=== PATIENT | male | born 1990 | race Caucasian/White ===

== ENCOUNTER 2018-05-22 13:29 | Emergency (ER) | payer OTHER ==
[2018-05-22 13:36] VITALS: BP 143/70
--- NOTE | 2018-05-22 16:14 | ED Physician Documentation ---
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 fluid in the eye irrigated feels fine now no contacts his command wanted him checked by medical so to the ER brought safety data sheets Review of Systems Eyes: denies: Irritation PD PAST MEDICAL HISTORY - Past Medical History Past Medical History: No - Past Surgical History Past Surgical History: Yes - Present Medications Home Medications: Ambulatory Orders Medication Instructions Recorded Confirmed No Known Home Medications [No 05/22/18 05/22/18 Known Home Medications] - Allergies Allergies/Adverse Reactions: Allergies Allergy/AdvReac Type Severity Reaction Status Date / Time No Known Drug Allergies Allergy Verified 05/22/18 13:36 - Social History Does the pt smoke?: No Smoking Status: Never smoker Does the pt drink ETOH?: Yes Does the pt have substance abuse?: No - Immunizations Immunizations are current?: Yes PD ED PE NORMAL - Vitals Vital signs reviewed: Yes - HEENT HEENT: PERRL, EOMI - Cardiac Cardiac: RRR - Respiratory Respiratory: No respiratory distress Results - Vitals Vitals: Vital Signs - 24 hr 05/22/18 13:34 Temperature 36.5 C Heart Rate 66 Respiratory 18 Rate Blood Pressure 143/70 H O2 Saturation 96 Oxygen O2 Source Room air PD MEDICAL DECISION MAKING - ED course ED course: reviewed data sheets and d/w poison control - this was not caustic and seems to just be a topical irritant and pt safe to dc - Sepsis Event Vital Signs: Vital Signs - 24 hr 05/22/18 13:34 Temperature 36.5 C Heart Rate 66 Respiratory 18 Rate Blood Pressure 143/70 H O2 Saturation 96 Oxygen O2 Source Room air Departure - Departure Disposition: 01 Home, Self Care Clinical Impression: Chemical exposure of eye Condition: Good Comments: This appears to be a non toxic chemical exposure You should be fine. Please return if worse in any way
== END 2018-05-22 16:21 | disposition home or self-care (01) ==
LOC: ED 13:29
DX: Z77.021 Contact with and (suspected) exposure to benzene (principal)
CPT/HCPCS: 99282